=== PATIENT | female | born 2000 | race Caucasian/White ===

== ENCOUNTER 2025-06-10 22:52 | Emergency (ER) | payer OTHER, BC ==
[~2025-06-10] VITALS: Ht 152.4 cm; Wt 54.0 kg
[2025-06-10 22:55] VITALS: TEMP 98.6
[2025-06-11 00:02] VITALS: BP 112/70; PULSE 68; RESP 18; O2SAT 99
[2025-06-11] MEDS: LIDOCAINE 1% 10 ML VIAL SQ ONE (01:45)
[2025-06-11] MEDS: PERTUSS(ACELL),DIPH,TET/PF 0.5 ML SYRINGE [ADULT] IM. ONE (01:46)
== END 2025-06-11 03:53 | disposition home or self-care (01) ==
LOC: EMS 22:53
DX: S61.217A Laceration without foreign body of left little finger without damage to nail, initial encounter (principal); W26.0XXA Contact with knife, initial encounter; Y99.0 Civilian activity done for income or pay; Y92.89 Other specified places as the place of occurrence of the external cause; Y93.89 Activity, other specified
CPT/HCPCS: 99283; 12002; 90715; 90471; J3490